=== PATIENT | male | born 1995 | race Caucasian/White ===

== ENCOUNTER 2018-05-25 20:41 | Emergency (ER) | payer OTHER ==
[2018-05-25] MEDS ORDERED: ONDANSETRON 4 MG/2 ML VIAL IVP ONE (21:05)
[2018-05-25] MEDS ORDERED: NS 1,000 ML IV ONE ×2 (21:09)
[2018-05-25] MEDS ORDERED: ACETAMINOPHEN 325 MG TAB PO ONE ×2 (21:10)
[2018-05-25] MEDS ORDERED: KETOROLAC 30 MG/1 ML SDV IVP ONE (21:11)
--- NOTE | 2018-05-25 21:11 | EDPHY ---
H & P Stated Complaint: N, V, and D for 22 hours. Epigastric pain. Time Seen by Provider: 05/25/18 20:54 HPI/ROS: 22 yo M presents c/o sudden onset of nausea ,vomiting and diarrhea after consuming take out sushi last night. No hives, no rash. Review of systems As per HPI General no fever no chills no weakness HEENT no eye pain no eye discharge. No eye redness, no sore throat Respiratory no cough, no shortness of breath Cardiac no chest pain, no peripheral edema GI positive crampy abdominal pain positive nausea positive vomiting positive diarrhea no flank pain, no hematuria, no dysuria Musculoskeletal positive myalgias, no joint pain Heme no easy bruising, no easy bleeding Endo no polyuria, no polydipsia Skin no rashes, no pruritus Neuro no syncope, no dizziness, no headaches Psych is no suicidal ideation, no homicidal ideation Source: Patient Exam Limitations: No limitations - Personal History Current Tetanus/Diphtheria Vaccine: Unsure Current Tetanus Diphtheria and Acellular Pertussis (TDAP): Yes - Medical/Surgical History Hx Asthma: Yes Hx Chronic Respiratory Disease: No Hx Diabetes: No Hx Cardiac Disease: No Hx Renal Disease: No Hx Cirrhosis: No Hx Alcoholism: No Hx HIV/AIDS: No Hx Splenectomy or Spleen Trauma: No Other PMH: Asthma as a child. Cupping to R arm for tendonitis. - Family History Significant Family History: No pertinent family hx - Social History Smoking Status: Never smoked Alcohol Use: Occasionally Drug Use: None - Physical Exam Exam: 22-year-old male alert and oriented no acute distress nontoxic appearance, febrile, slightly pale HEENT atraumatic normocephalic, extraocular muscles intact, anicteric Oropharynx negative for erythema negative exudate, tolerating her own secretions Neck supple no meningismus Lungs clear to auscultation bilaterally Heart regular rate and rhythm without murmur rub or gallop Abdomen nondistended bowel sounds quiet soft nontender Back no CVA tenderness, no step-offs, no spinal tenderness Extremities no cyanosis clubbing or edema Neuro alert and oriented, no focal deficits Constitutional: Initial Vital Signs Temperature (C) 37.2 C 05/25/18 20:45 Heart Rate 102 H 05/25/18 20:45 Respiratory Rate 18 05/25/18 20:45 Blood Pressure 128/72 H 05/25/18 20:45 O2 Sat (%) 96 05/25/18 20:45 O2 Delivery Mode Room Air Allergies/Adverse Reactions: cat dander Allergy (Mild, Verified 05/25/18 20:58) Itching dog dander Allergy (Mild, Verified 05/25/18 20:58) Itching Home Medications: Medication Instructions Recorded NK [No Known Home Meds] 05/25/18 Medical Decision Making ED Course/Re-evaluation: Patient seen and evaluated for nausea vomiting diarrhea of approximately 24 hr duration associated with fevers and chills following suspicious food consumption. IV established labs drawn Patient given acetaminophen 975 mg p.o., tolerated Given 2 L IV normal saline Given Toradol 30 mg IV push still unable to urinate, but feeling markedly improved given a third liter of normal saline Imp gastroenteritis Plan Home Rest Differential Diagnosis: Differential diagnosis considered but not limited to: Gastroenteritis, infectious diarrhea - Data Points Laboratory Results: 05/25/18 05/25/18 21:06 21:02 POC Sodium 141 mEq/L mEq/L (135-145) POC Potassium 3.5 mEq/L mEq/L (3.3-5.0) POC Chloride 105.0 mEq/L mEq/L (97-110) POC Total CO2 24 mEq/L mEq/L (22-31) POC BUN 17 mg/dL mg/dL (7-23) POC Creatinine 1.3 mg/dL mg/dL (0.7-1.3) POC Glucose 113 mg/dL H mg/dL (70-100) POC Lactic Acid Pradeep 1.5 mmol/L mmol/L (0.7-2.1) POC Calcium 9.1 mg/dL mg/dL (8.5-10.4) POC Total Bilirubin 3.0 mg/dL H mg/dL (0.1-1.4) POC AST 32 IU/L IU/L (17-59) POC ALT 29 IU/L IU/L (21-72) POC Alk Phosphatase 68 IU/L IU/L (38-126) POC Total Protein 6.6 g/dL g/dL (6.3-8.2) POC Albumin 4.4 g/dL g/dL (3.5-5.0) Medications Given: Discontinued Medications Acetaminophen (Tylenol) 325 mg PO EDNOW ONE Stop: 05/25/18 21:11 Last Admin: 05/25/18 21:19 Dose: 325 mg Acetaminophen (Tylenol) 650 mg PO EDNOW ONE Stop: 05/25/18 21:11 Last Admin: 05/25/18 21:19 Dose: 650 mg Sodium Chloride (Ns) 1,000 mls @ 0 mls/hr IV EDNOW ONE; Wide Open PRN Reason: Protocol Stop: 05/25/18 21:06 Last Admin: 05/25/18 22:21 Dose: 1,000 mls Sodium Chloride (Ns) 1,000 mls @ 0 mls/hr IV ONCE ONE PRN Reason: Wide Open Stop: 05/25/18 21:10 Last Admin: 05/25/18 21:14 Dose: 1,000 mls Ketorolac Tromethamine (Toradol) 30 mg IVP EDNOW ONE Stop: 05/25/18 21:12 Last Admin: 05/25/18 21:20 Dose: 30 mg Ondansetron HCl (Zofran) 4 mg IVP EDNOW ONE Stop: 05/25/18 21:06 Last Admin: 05/25/18 21:14 Dose: 4 mg Point of Care Test Results: CBC CBC Collection Date 05/25/18 CBC Collection Time 21:00 WBC 9.7 RBC 6.07 HGB 16.4 HCT 47.6 PLT 238 Neut # 8.8 Neut 89.9 LYMPH # 0.6 LYMPH 6.6 Other WBC # 0.3 Other WBC 3.5 MCV 78.4 Chemistry 05/25/18 21:02 POC Sodium 141 mEq/L mEq/L (135-145) POC Potassium 3.5 mEq/L mEq/L (3.3-5.0) POC Chloride 105.0 mEq/L mEq/L (97-110) POC Total CO2 24 mEq/L mEq/L (22-31) POC BUN 17 mg/dL mg/dL (7-23) POC Creatinine 1.3 mg/dL mg/dL (0.7-1.3) POC Glucose 113 mg/dL H mg/dL (70-100) POC Calcium 9.1 mg/dL mg/dL (8.5-10.4) POC Total Bilirubin 3.0 mg/dL H mg/dL (0.1-1.4) POC AST 32 IU/L IU/L (17-59) POC ALT 29 IU/L IU/L (21-72) POC Alk Phosphatase 68 IU/L IU/L (38-126) POC Total Protein 6.6 g/dL g/dL (6.3-8.2) POC Albumin 4.4 g/dL g/dL (3.5-5.0) Blood Gas/Lactic Acid-Venous 05/25/18 21:06 POC Lactic Acid Pradeep 1.5 mmol/L mmol/L (0.7-2.1) Departure - Departure Disposition: Home, Routine, Self-Care Clinical Impression: Gastroenteritis Condition: Good Instructions: Ondansetron (By mouth), Gastroenteritis (ED), Food Poisoning (ED) Referrals: KENDELL GABRIEL [Primary Care Provider] - As per Instructions
[2018-05-25] MEDS: NS 1,000 ML IV ONE ×2 (21:20→22:21)
[2018-05-25] MEDS ORDERED: ONDANSETRON 4MG PREPACK#2 BTL TAKEHOME ONE (22:31)
[2018-05-25 23:10] VITALS: BP 117/79
== END 2018-05-25 23:10 | disposition home or self-care (01) ==
LOC: CED 20:41
DX: K52.9 Noninfective gastroenteritis and colitis, unspecified (principal); E86.9 Volume depletion, unspecified
CPT/HCPCS: 80053-PO; 83605-PO; 96374; J1885; J2405